=== PATIENT | female | born 1980 | race Caucasian/White ===

== ENCOUNTER → 2019-01-02 16:19 | Outpatient (CLI) | payer SELFPAY ==
--- NOTE | 2019-01-02 16:30 | RAD_ITS ---
STUDY: X-RAY - CERVICAL SPINE REASON FOR EXAM: Female, 38 years old. Cervical disorder at C5-C6 with right arm numbness. TECHNIQUE: 5 view(s) of the cervical spine were obtained. COMPARISON: None FINDINGS: Odontoid and lateral masses intact and aligned without significant degeneration. Mild multilevel facet arthropathy/hypertrophy. Uncovertebral joint hypertrophy at C5-C6 contributes to bony foraminal narrowing bilaterally. Mild uncal hypertrophy at C6-C7 contributes to minimal bony foraminal narrowing. There is mild intervertebral disc narrowing at C5-C6, minimal at C6-C7. Vertebral body height and alignment are normal. There is straightening of the expected cervical lordosis. Prevertebral soft tissues, airways, craniofacial osseous structures, apical lungs and apical thoracic cage within the [id number] exhibit No acute abnormality. RAD/Cerv Spine 4 or 5 Views IMPRESSION: Most prominent degenerative disc disease C5-C6, mild disc narrowing, moderately prominent uncovertebral joint hypertrophy contributing to foraminal narrowing. This may impinge upon the exiting C6 nerve roots. Follow-up MRI of the cervical spine is suggested. Electronically Signed: Sebas Curran MD at 14:53 EDT Tel , Service support ,
== END ==
PROVIDERS: Family Provider Family Medicine; PCP Family Medicine; Referring Provider Family Medicine; Visit Provider Family Medicine
DX: M50.122 Cervical disc disorder at C5-C6 level with radiculopathy (principal)
CPT/HCPCS: 72050

== ENCOUNTER → 2019-09-26 15:54 | Outpatient (CLI) | payer SELFPAY ==
--- NOTE | 2019-09-26 15:58 | BI_ITS ---
MAMMOGRAPHY - BILATERAL SCREENING REASON FOR EXAM: Female, 38 years old. Routine annual screening examination. PERTINENT HISTORY: Non-contributory. TECHNIQUE: Digital bilateral breast oral (3D mammographic acquisition) in the CC and MLO projections. 2-D mediolateral oblique (MLO) and craniocaudad (CC) views of both breasts were obtained. CAD: Full Field Digital Mammography with Computer Added Detection was performed. COMPARISON: None. Baseline examination. FINDINGS: Breast Composition: The breasts are heterogeneously dense, which may obscure small masses. There is a 1.5 cm x 0.8 cm well-defined nodule in the deep lateral aspect of the right breast. There is also evidence of enlarged right axillary lymph nodes. Correlation with ultrasound of the right axillary region as well as the nodular density in the lateral aspect of the breast for further evaluation. No other significant abnormalities are identified. BI/SCREEN MAMM (CAD) W/ORAL BILAT IMPRESSION: Nodular densities in the right axillary region as well as a nodule in the deep lateral portion of the right breast. Correlation with ultrasound is recommended ASSESSMENT CATEGORY: BIRADS Category 0: Incomplete. Need additional imaging evaluation. A letter regarding these results will be sent to the patient by the facility within 30 days. Approximately 10% of breast cancers are not detected by mammography. A normal mammogram should not delay biopsy of a clinically suspicious abnormality. [id number] Electronically Signed: Myles Lu, at 8:44 EST , Service support ,
== END ==
PROVIDERS: Family Provider Family Medicine; PCP Family Medicine; Referring Provider Family Medicine; Visit Provider Family Medicine
DX: Z12.31 Encounter for screening mammogram for malignant neoplasm of breast (principal)
CPT/HCPCS: 77063; 77067

== ENCOUNTER → 2019-10-02 15:10 | Outpatient (CLI) | payer SELFPAY ==
--- NOTE | 2019-10-02 15:13 | US_ITS ---
STUDY: ULTRASOUND BREAST - RIGHT REASON FOR EXAM: Female, 39 years old. Abnormal screening mammogram. TECHNIQUE: Axial and longitudinal images of the RIGHT breast were performed with a high resolution ultrasound transducer. # OF IMAGES: [id number] COMPARISON: Comparison is made with prior mammogram dated September 26, 2019. FINDINGS: RIGHT Breast: 3 cysts are seen in the upper outer quadrant of the right breast. The largest measures 1.3 cm x 0.9 cm x 0.4 cm. This corresponds to the mammographic findings. The right axillary region was examined as well. There is evidence of a 2.2 cm x 1.9 cm x 1 cm lymph node. Adjacent to this, there is a 1.5 cm x 1.1 cm x 0.7 cm lymph node. These lymph nodes have central echogenic yoly. US/Breast Limited Unilateral IMPRESSION: 3 cysts are seen in the upper-outer quadrant of the right breast as described. The largest measures 1.3 cm x 0.9 cm x 0.4 cm. This corresponds to the mammographic findings. 2. Right axillary lymph nodes. ASSESSMENT CATEGORY: BIRADS Category 2: Benign. A letter regarding these results will be sent to the patient by the facility within 30 days. Electronically Signed: Myles Lu, at 13:18 EST , Service support ,
== END ==
PROVIDERS: Family Provider Family Medicine; PCP Family Medicine; Referring Provider Family Medicine; Visit Provider Family Medicine
DX: R92.8 Other abnormal and inconclusive findings on diagnostic imaging of breast (principal)
CPT/HCPCS: 76642

== ENCOUNTER → 2019-10-30 11:15 | Outpatient (CLI) | payer SELFPAY ==
--- NOTE | 2019-10-30 11:26 | RAD_ITS ---
STUDY: X-RAY CHEST REASON FOR EXAM: Female, 39 years old. Shortness of breath TECHNIQUE: PA and lateral views of the chest COMPARISON: None. FINDINGS: The lungs are clear. There are no pleural effusions. There is no pneumothorax. The heart is normal in size. The visualized osseous structures are within normal limits. RAD/Chest PA and Lateral IMPRESSION: No acute thoracic pathology. Electronically Signed: Eran Hale, at 19:53 EST Tel , Service support ,
== END ==
PROVIDERS: Family Provider Family Medicine; PCP Family Medicine; Referring Provider Family Medicine; Visit Provider Family Medicine
DX: J20.9 Acute bronchitis, unspecified (principal)
CPT/HCPCS: 71046

== ENCOUNTER → 2020-05-12 | Outpatient (CLI) | payer SELFPAY ==
--- NOTE | 2020-05-12 10:01 | RAD_ITS ---
STUDY: X-RAY - LEFT RADIUS AND ULNA REASON FOR EXAM: Female, 39 years old. left wrist pain, fell several months ago TECHNIQUE: 2 view(s) of the forearm. COMPARISON: None. FINDINGS: There is no demonstrated soft tissue swelling. Normal visualized radius. Normal visualized ulna. There is no demonstrated acute fracture. RAD/Forearm 2 Views IMPRESSION: Normal x-ray examination of the radius and ulna. Electronically Signed: Franklyn Schroeder MD at 19:54 EDT , Service support ,
== END | disposition home or self-care (01) ==
PROVIDERS: PCP Family Medicine; Referring Provider Family Medicine; Visit Provider Family Medicine
DX: M25.532 Pain in left wrist (principal)
CPT/HCPCS: 73090

== ENCOUNTER → 2020-08-14 | Outpatient (CLI) | payer SELFPAY ==
--- NOTE | 2020-08-14 10:10 | RAD_ITS ---
STUDY: X-RAY CHEST REASON FOR EXAM: Female, 39 years old. Acute bronchitis TECHNIQUE: PA and lateral views of the chest. COMPARISON: 10/30/2019 FINDINGS: There is no new focal consolidation. Normal size heart. Normal mediastinum and yoly. Normal visualized pulmonary arteries. Normal visualized aortic arch and descending thoracic aorta. Normal visualized thoracic spine. Normal visualized ribs, clavicles, and shoulders. There is no demonstrated abnormality of the visualized soft tissue structures of the upper abdomen. RAD/Chest PA and Lateral IMPRESSION: No acute cardiopulmonary process. Electronically Signed: Angella Olivares MD at 20:28 EDT Tel , Service support ,
== END | disposition home or self-care (01) ==
PROVIDERS: PCP Family Medicine; Referring Provider Family Medicine; Visit Provider Family Medicine
DX: J20.9 Acute bronchitis, unspecified (principal); B34.9 Viral infection, unspecified
CPT/HCPCS: 71046; 87635; U0003

== ENCOUNTER → 2020-10-01 | Outpatient (CLI) | payer SELFPAY ==
[2020-10-05 04:49] LABS: HPV Reflexed? NOT INDICATED
== END | disposition home or self-care (01) ==
PROVIDERS: PCP Family Medicine; Referring Provider Nurse Practitioner Adult Health; Visit Provider Nurse Practitioner Adult Health
DX: Z12.4 Encounter for screening for malignant neoplasm of cervix (principal)
CPT/HCPCS: 88175; G0145

== ENCOUNTER → 2021-04-29 10:32 | Outpatient (CLI) | payer SELFPAY ==
[2021-04-29 12:45] LABS: T4 Free Direct 0.88 ng/dL (0.76-1.46); Thyroid Stim Hormone (TSH) 0.99 uIU/mL (0.358-3.74)
[2021-04-30 16:53] LABS: Thyroglobulin Antibody < 1.0 IU/mL (0.0-0.9); Thyroid Peroxidase AB 10 IU/mL (0-34)
== END ==
PROVIDERS: PCP Family Medicine; Referring Provider Family Medicine; Visit Provider Family Medicine
DX: E04.1 Nontoxic single thyroid nodule (principal)
CPT/HCPCS: 36415; 84439; 84443; 86376; 86800

== ENCOUNTER → 2021-05-06 10:53 | Outpatient (CLI) | payer SELFPAY ==
--- NOTE | 2021-05-06 11:00 | US_ITS ---
STUDY: THYROID ULTRASOUND REASON FOR EXAM: Female, 40 years old. Palpable lump. TECHNIQUE: Ultrasound evaluation of the thyroid was performed with real-time and static trejo-scale imaging. COMPARISON: None. FINDINGS: RIGHT LOBE: The right lobe of the thyroid gland measures 4.9 cm x 1.9 cm x 1.5 cm. There is a homogeneous echotexture. There are no demonstrated solid, cystic or complex lesions. LEFT LOBE: The left lobe of the thyroid gland measures 4.6 cm x 1.7 cm x 1.1 cm. There is a homogeneous echotexture. There is a 2 mm x 2 mm x 1 mm cyst in the upper pole. ISTHMUS: The isthmus measures 3 mm. The regional lymph nodes are normal. US/Thyroid IMPRESSION: 2 mm x 2 mm x 1 mm cyst in the upper pole of the left lobe of the thyroid. Electronically Signed: Myles Lu MD at 12:20 EDT , Service support ,
== END ==
PROVIDERS: PCP Family Medicine; Referring Provider Family Medicine; Visit Provider Family Medicine
DX: E04.1 Nontoxic single thyroid nodule (principal)
CPT/HCPCS: 76536

== ENCOUNTER → 2023-05-26 | Outpatient (CLI) | payer SELFPAY | END | disposition home or self-care (01) | LOC: LABSPEC 13:50 | PROVIDERS: PCP Family Medicine; Visit Provider Family Medicine | DX: R31.9 Hematuria, unspecified (principal) | CPT/HCPCS: 87086; 87088; 87186 ==

== ENCOUNTER → 2024-09-19 | Outpatient (CLI) | payer SELFPAY ==
[2024-09-19 10:39] LABS: Absolute Lymphocyte Count 3.05 X10^3/uL (0.83-4.51); Absolute Neutrophil Count 6.2 X10^3/uL (2.0-7.7); Basophil# 0.08 X10^3/uL; Basophil% 0.8 % (0-1); Eosinophil# 0.23 X10^3/uL; Eosinophils% 2.2 % (0-5); Hematocrit 44.4 % (37-47); Hemoglobin 14.2 g/dL (12.0-15.0); Lymphocyte # 3.05 X10^3/ul (0.83-4.51); Lymphocyte % 29.2 % (19-41); Mean Corpuscular Hgb 29.8 pg (27.0-32.0); Mean Corpuscular Volume 93.1 fL (81-99); Mean Platelet Vol. 9.8 fl (6.2-12.0); Monocyte# 0.87 X10^3/uL; Monocyte% 8.3 % (0-10); NRBC Flagged by Analyzer 0 % (0-5); Neutrophil # 6.19 X10^3/uL (2.7-7.7); Neutrophil % 59.2 % (47-70); Platelet Count 388 K/mm3 (150-450); RBC Distribution Width CV 13.2 % (11.6-14.6); Red Blood Count 4.77 M/mm3 (4.2-5.4); White Blood Count 10.5 K/mm3 (4.4-11.0)
[2024-09-19 10:58] LABS: AST(SGOT) 24 U/L (15-37); Alanine Aminotransfer ALT/SGPT 24 U/L (13-56); Albumin, Serum 3.7 g/dL (3.2-5.0); Alkaline Phosphatase 70 U/L (45-117); Anion Gap 3 (5-15); BUN 13 mg/dL (7-18); BUN/Creat Ratio 14.6 RATIO (10-20); Calcium,Total 8.8 mg/dL (8.5-10.1); Chloride 109 mmol/L (98-107); Creatinine, Serum 0.89 mg/dL (0.55-1.02); EST Glomerular Filtration Rate 73 mL/min (>60); Est Glom Filt Rate - Afr Amer 88 mL/min (>60); Globulin 3.6 g/dL (2.2-4.2); Glucose 84 mg/dL (74-106); Potassium 4.3 mmol/L (3.5-5.1); Protein, Total 7.3 g/dL (6.4-8.2); Sodium Level 140 mmol/L (136-145)
[2024-09-20 08:45] LABS: Bacteria 0 SEEN /hpf (None Seen); Mucous, Urine 0 SEEN /hpf (<or=2+)
[2024-09-20 08:47] LABS: Red Blood Cells-Urine 0 SEEN /hpf (0-5); White Blood Cells 0 SEEN /hpf (0-5)
[2024-09-20 09:15] LABS: Color, Urine Yellow (Yellow); Glucose, Dipstick Normal (Normal); Ketone-Dipstick Negative (Negative); Leukocyte Esterase-Dipstick Negative /ul (Negative); Nitrite-Dipstick Negative (Negative); Occult Blood-Urine Negative /ul (Negative); Protein-Dipstick Negative (Negative); Urine Bilirubin Dipstick Negative (Negative); Urine Clarity Sl. Cloudy (Clear); Urine Urobilinogen Normal (Normal)
[2024-09-20 09:23] LABS: Squamous Epithelial Cells - UA 0-5 SEEN /hpf (5-10)
== END | disposition home or self-care (01) ==
LOC: MFPLAB 08:54
PROVIDERS: PCP Family Medicine; Referring Provider Family Medicine; Visit Provider Family Medicine
DX: F17.200 Nicotine dependence, unspecified, uncomplicated (principal)
CPT/HCPCS: 36415; 80053; 81001; 82043; 85025

== ENCOUNTER → 2024-12-03 | Outpatient (CLI) | payer SELFPAY ==
--- NOTE | 2024-12-03 08:35 | MRI_ITS ---
PROCEDURE: MRI cervical spine without IV contrast REASON FOR EXAM: 12/03/2019 TECHNIQUE: Multisequence multiplanar MR images of the cervical spine were obtained without the administration of intravenous contrast. COMPARISON: 01/02/2019 FINDINGS: Vertebral body heights are maintained. Negative for fracture or marrow replacement. Mild degenerative endplate edema at C5-6. Alignment is within normal limits. Spinal cord is of normal caliber, contour and signal intensity. No paraspinal mass. C2-3: No focal disc abnormality, spinal stenosis or foraminal narrowing. C3-4: Minimal posterior disc osteophyte complex. No significant spinal stenosis or foraminal narrowing. Mild bilateral facet arthrosis. C4-5: No focal disc abnormality, spinal stenosis or foraminal narrowing. Mild right facet arthrosis. C5-6: Posterior disc osteophyte complex. Bilateral uncovertebral arthrosis. Mild spinal stenosis. Moderate/severe bilateral foraminal narrowing. C6-7: Posterior disc osteophyte complex. Bilateral uncovertebral arthrosis, greater on the right. Borderline mild spinal stenosis. Moderate/severe right and mild left foraminal narrowing. C7-T1: No focal disc abnormality, spinal stenosis or foraminal narrowing. MRI/Spine Cervical (Routine) IMPRESSION: Acquired mild spinal stenosis and moderate/severe foraminal narrowing at C5-C6 and C6-C7 as above. Reading Location: [facility]
== END | disposition home or self-care (01) ==
PROVIDERS: PCP Family Medicine; Referring Provider Family Medicine; Visit Provider Family Medicine
DX: M48.02 Spinal stenosis, cervical region (principal)
CPT/HCPCS: 72141

== ENCOUNTER → 2025-03-26 | Outpatient (CLI) | payer SELFPAY ==
--- NOTE | 2025-03-26 16:40 | CT_ITS ---
PROCEDURE: CHEST WITH CONTRAST 03/26/2025 REASON FOR EXAM: LACULATED PLEURAL EFFUSION TECHNIQUE: Prone and supine chest CT with intravenous contrast, high resolution CT (HRCT) protocol. Coronal and Sagittal reconstruction series were provided. CONTRAST: 100 mL of Isovue 370 One or more dose reduction techniques were used (e.g., Automated exposure control, adjustment of the mA and/or kV according to patient size, use of iterative reconstruction technique). RADIATION DOSE SUMMARY: DLP: 222 mGycm COMPARISON: None FINDINGS: LUNGS AND PLEURA: No focal consolidations. Moderate left-sided pleural effusion with subjacent compressive atelectasis. No pneumothorax. No nodules or masses. MEDIASTINUM: Prominent mediastinal lymph nodes without paddy adenopathy. The heart shows no acute findings. The aorta shows no acute findings. The pulmonary trunk and branches of the vessels in the mediastinum are within normal limits. SUPRACLAVICULAR AND AXILLARY: No abnormalities seen in these regions. No mass or significant lymphadenopathy. UPPER ABDOMEN: The visualized upper abdomen is unremarkable. BONES AND SOFT TISSUES: The bony structures show no significant acute findings. No focal bony mass lesions noted. The subcutaneous soft tissues are unremarkable. CT/Chest WITH Contrast IMPRESSION: Moderate left-sided pleural effusion with subjacent compressive atelectasis. No focal consolidations. Reading Location: [id number]
== END | disposition home or self-care (01) ==
PROVIDERS: PCP Family Medicine; Referring Provider Family Medicine; Visit Provider Family Medicine
DX: J90 Pleural effusion, not elsewhere classified (principal)
CPT/HCPCS: 71260; Q9967

== ENCOUNTER → 2025-03-26 | Outpatient (CLI) | payer SELFPAY ==
--- NOTE | 2025-03-26 11:46 | RAD_ITS ---
PROCEDURE: CHEST PA AND LATERAL 03/26/2025 REASON FOR EXAM: SOB X 2-3 WEEKS TECHNIQUE: Frontal and lateral views of the chest. COMPARISON: Two-view chest, 08/14/2020. FINDINGS: There is airspace consolidation in the lower lobe of the left lung and there is a partially loculated left pleural effusion. The right lung is clear. The heart size is normal. The mediastinum and pulmonary vascular pattern are normal. The upper abdominal bowel gas pattern is normal. There are no bony abnormalities of the chest. RAD/Chest PA and Lateral IMPRESSION: Partially loculated left pleural effusion and atelectasis or pneumonia in the l ower lobe of the left lung. Reading Location: [place] [id number]
== END | disposition home or self-care (01) ==
PROVIDERS: PCP Family Medicine; Referring Provider Family Medicine; Visit Provider Family Medicine
DX: R06.02 Shortness of breath (principal)
CPT/HCPCS: 71046

== ENCOUNTER → 2025-03-28 | Outpatient (CLI) | payer SELFPAY ==
--- NOTE | 2025-03-28 14:26 | US_ITS ---
PROCEDURE: Ultrasound of the pleural space 03/28/2025 REASON FOR EXAM: PLEURAL EFFUSION TECHNIQUE: Both right and left pleural spaces were examined with ultrasound. . Not enough fluid for safe thoracentesis. COMPARISON: None US/Chest IMPRESSION: Not enough fluid for safe thoracentesis. Reading Location: [id number]
== END | disposition home or self-care (01) ==
PROVIDERS: PCP Family Medicine; Referring Provider Family Medicine; Visit Provider Family Medicine
DX: J90 Pleural effusion, not elsewhere classified (principal)
CPT/HCPCS: 76604

== ENCOUNTER → 2025-04-04 | Outpatient (CLI) | payer SELFPAY ==
--- NOTE | 2025-04-04 12:41 | RAD_ITS ---
PROCEDURE: CHEST PA AND LATERAL 04/04/2025 REASON FOR EXAM: SHORTNESS OF BREATH TECHNIQUE: CHEST PA AND LATERAL COMPARISON: Prior study dated March 26, 2025. FINDINGS: Increasing left pleural effusion with left basilar atelectasis. RAD/Chest PA and Lateral IMPRESSION: Increasing left pleural effusion with left basilar atelectasis. Reading Location: [place] [id number]
[2025-04-04 13:28] LABS: Rheumatoid Factor 73.1 IU/mL (<15)
[2025-04-05 09:08] LABS: ANTINUCLEAR ANTIBODIES DIRECT Negative (Negative)
[2025-04-05 17:08] LABS: CCP IgG Antibodies > 250 units (0-19); Cytoplasmic Ab (C-ANCA) <1:20 titer (Neg:<1:20); Perinuclear Ab (P-ANCA) <1:20 titer (Neg:<1:20)
== END | disposition home or self-care (01) ==
LOC: RAD 12:25
PROVIDERS: PCP Family Medicine; Referring Provider Internal Medicine Critical Care Medicine; Visit Provider Internal Medicine Critical Care Medicine
DX: R06.09 Other forms of dyspnea (principal)
CPT/HCPCS: 36415; 71046; 86037; 86038; 86200; 86225; 86235; 86431

== ENCOUNTER → 2025-04-09 | Outpatient (CLI) | payer SELFPAY ==
--- NOTE | 2025-04-09 13:30 | US_ITS ---
PROCEDURE: THORACENTESIS W US 04/09/2025 REASON FOR EXAM: ENLARGING LEFT EFFUSION TECHNIQUE: Left THORACENTESIS W US COMPARISON: None. FINDINGS: Following informed consent, and using standard sterile technique, a left thoracic ultrasound-guided thoracentesis was performed via posterior approach. 2% lidocaine local anesthesia was followed by placement of a 5 Chinese catheter into the left pleural fluid collection. Extensive areas of loculation were clearly present, but approximately 45 mL of slightly cloudy yellow fluid was successfully removed, however. No complication was encountered, the patient left the department in good condition without significant complaint. US/Thoracentesis W US IMPRESSION: Successful left sided diagnostic thoracentesis. Laboratory results pending. Reading Location: [place] [id number]
[2025-04-09 13:45] VITALS: BP 103/74; PULSE 92; RESP 16; O2SAT 98
--- NOTE | 2025-04-09 13:45 | FLU_PTH ---
PATIENT: VALDEMAR KUMAR LOC: [facility]#:[id number] AGE/SX: 44/F ROOM: RE04/09/[address]: Dr. Dustin Venegas DO : 1980 BED: DIS: 04/09/2025 SPEC #: [id number] RECD: 04/09/25 14:20 STATUS: BARRY REQ #: [id number] SHIRLEY: 04/09/25 13:[address]: Dustin Venegas DEPT: CYTOLOGY RECD BY: Luís Man ENTERED: 04/10/25 09:46 SP TYPE: Fluid OTHR DR: Dr. Aldair Smith MD Tissues: A - THORACIC FLUID Procedures: Immunohistochemical Stains Special Stain Group II Surgery Specimen Level IV Cytospin Fluid IHC Stain ADDITIONAL HEADER OPERATION: Ultrasound guided thoracentesis PRE-OP DIAGNOSIS: Pleural effusion TISSUE SUBMITTED: A- Thoracentesis fluid for cytology DIAGNOSIS CYTOLOGY A. Pleural fluid, thoracentesis (cytospin, cellblock): - Atypical cells of undetermined significance. - Acute inflammation. - Further evaluation is pending IHC and the findings will be reported in an addendum. CYTOLOGY STUDY Slides are reviewed. CYTOLOGY GROSS A. Received is 30 ml of yellow-cloudy fluid labeled with the patient's name and and designated per the requisition as Thoracentesis fluid. Submitted for cytology and cell block preparation. 04/10/2025 CPT: 40545,64441,09429,12832s0 ADDENDUM ADDENDUM ADDENDUM ADDENDUM ADDENDUM ADDENDUM ADDENDUM ADDENDUM ADDENDUM ADDENDUM ADDENDUM ADDENDUM 05/09/2025 13:52 ADDENDUM 05/09/2025 13:52 ADDENDUM 05/09/2025 13:52 ADDENDUM 05/09/2025 13:52 ADDENDUM 05/09/2025 13:52 This addendum is to report the findings of the IHC stains: Rare small atypical cells are observed in the cell block. Rare cells are positive for GATA3. Additional IHC for Ecadherin, Calretinin, PAX8, CK7, CK20, TTF-1, and Napsin A are negative. The findings are not specific or diagnostic. All matched controls reacted appropriately. These tests were developed and their performance characteristics determined by [facility]. They may not have been cleared or approved by the [place]. Food and Drug Administration. The FDA has determined that such clearance or approval is not necessary.? The above immunohistochemical/dualISH?markers are reviewed by the Pathologist.
[2025-04-09] MEDS: Lidocaine 2% (20 ml mdv) 20 ML Vial INFILT (13:48)
[2025-04-09 13:50] VITALS: BP 78/52; PULSE 68; RESP 16; O2SAT 95
[2025-04-09 13:52] VITALS: BP 87/54; PULSE 68; RESP 16; O2SAT 97
[2025-04-09 14:00] VITALS: BP 101/66; PULSE 72; RESP 16; O2SAT 100
[2025-04-09 14:02] VITALS: BP 95/66; PULSE 80; RESP 16; O2SAT 98
[2025-04-09 14:06] VITALS: BP 100/72; PULSE 86; RESP 16; O2SAT 99
[2025-04-09 14:27] LABS: Cytology, Body Fluid / CSF SEE PATHOLOGY REPORT
[2025-04-09 14:50] LABS: Body Fluid Mononuclear WBC % 82.6 %; Body Fluid Polynuclear WBC % 17.4 %; Body Fluid Total Cells Counted 3.876 10^3/ul; Red Cell Count/Body Fluid 0.005 10^6/ul
[2025-04-09 14:52] LABS: Appearance/Body Fluid SL CLDY; Auto B Fluid Analyzer BKGD Ct COUNTS W/IN LIMITS (W/IN LIMITS); Color/Body Fluid YELLOW; Source- Body Fluid THORACENTESIS
[2025-04-09 15:17] LABS: Lymphocytes 77 %; Monocytes 7 %; Neutrophil (Segs) 16 %
[2025-04-09 15:20] LABS: Body Fluid QC Type(s) BF1Q
[2025-04-09 17:31] LABS: Glucose, Body Fluid 9 mg/dL (Not Establ.); LDH,Body Fluid 1026 Units/L (Not Establ.); Protein, Body Fluid 5.4 g/dL (Not Establ.)
[2025-04-11 11:05] LABS: Pathologist Comment/Body Fluid Reviewed
== END | disposition home or self-care (01) ==
LOC: US 13:27
PROVIDERS: PCP Family Medicine; Referring Provider Internal Medicine Critical Care Medicine; Visit Provider Internal Medicine Critical Care Medicine
DX: J90 Pleural effusion, not elsewhere classified (principal)
CPT/HCPCS: 32555; 82945; 83615; 84157; 87070; 87075; 87205; 88108; 88305; 88313; 88341; 88342; 89050

== ENCOUNTER → 2025-06-07 | Outpatient (CLI) | payer OTHER, SELFPAY ==
--- NOTE | 2025-06-07 13:13 | ECHOD_ITS ---
Reason For Study Reason For Study: DYSPNEA/SOB Procedure This was a 2D Doppler, Color Flow transthoracic echocardiogram. Exam performed in department. Left Ventricle Normal LV size. The estimated ejection fraction is 55 %. No evidence for diastolic dysfunction. No regional wall motion abnormalities noted. Right Ventricle Normal RV size. Normal systolic function. Atria The left and right atria are normal. No doppler evidence for ASD. Mitral Valve There is no mitral valve stenosis. Trivial mitral valve insufficiency. Tricuspid Valve There is no tricuspid stenosis. Trivial tricuspid valve insufficiency. Unable to estimate RV systolic pressure due to insufficient tricuspid regurgitant envelope. Aortic Valve Trisinus/trileaflet aortic valve. There is no aortic stenosis. No aortic valve insufficiency. Pulmonic Valve There is no pulmonic valvular stenosis. No pulmonic valve insufficiency. Great Vessels Normal sized aortic root. Pericardium/Pleural No pericardial effusion. MMode/2D Measurements & Calculations LVIDd: 4.5 cm IVSd: 0.75 cm Ao root diam: 3.1 cm LVIDs: 3.2 cm LVPWd: 0.78 cm RVDd: 2.9 cm FS: 28.1 % LAV(MOD-bp): 33.6 ml LVAd ap4: 23.0 cm2 SV(MOD-sp4): 33.7 ml LAV(MOD-bp) Indexed: 19.3 ml/m2 LVLd ap4: 7.1 cm SI(MOD-sp4): 19.4 ml/m2 LAV(MOD-sp2): 35.2 ml EDV(MOD-sp4): 61.0 ml LAV(MOD-sp4): 31.0 ml EDV(sp4-el): 63.1 ml LVAs ap4: 14.1 cm2 LVLs ap4: 6.0 cm ESV(MOD-sp4): 27.3 ml ESV(sp4-el): 27.8 ml EF(MOD-sp4): 55.3 % EF(sp4-el): 55.9 % SV(sp4-el): 35.3 ml LA A4 area: 13.0 cm2 LA dimension(2D): 2.8 cm RA A4 area: 12.1 cm2 TAPSE: 2.2 cm Time Measurements MV dec time: 0.15 sec Doppler Measurements & Calculations MV E max adis: 58.7 cm/sec Lat Peak E' Adis: 12.7 cm/sec Med Peak E' Adis: 10.8 cm/sec MV A max adis: 70.1 cm/sec E/E' lat: 4.6 E/E' med: 5.5 MV E/A: 0.84 MV V2 max: 83.6 cm/sec MV P1/2t max adis: 72.3 cm/sec Ao V2 max: 100.5 cm/sec MV max P.8 mmHg MV P1/2t: 60.3 msec Ao max P.0 mmHg MV V2 mean: 43.3 cm/sec Ao V2 mean: 67.1 cm/sec MV mean P.87 mmHg MV dec slope: 350.8 cm/sec2 Ao mean P.0 mmHg MV V2 VTI: 22.4 cm MVA(P1/2t): 3.6 cm2 Ao V2 VTI: 18.6 cm AV (velocity ratio): 0.92 LV V1 max: 82.3 cm/sec PA V2 max: 75.3 cm/sec TR max adis: 182.9 cm/sec LV V1 max P.7 mmHg TR max P.4 mmHg LV V1 mean P.5 mmHg LV V1 mean: 58.4 cm/sec LV V1 VTI: 17.0 cm ECHO/Echo Complete Interpretation Summary The estimated ejection fraction is 55 %. No evidence for diastolic dysfunction. Trivial mitral valve insufficiency. Ordering Physician: Dustin Venegas Referring Physician: Aldair Smith Performed By: Brittany Gabriel, JIMMIECS, RVT
== END | disposition home or self-care (01) ==
PROVIDERS: PCP Family Medicine; Referring Provider Internal Medicine Critical Care Medicine; Visit Provider Internal Medicine Critical Care Medicine
DX: R06.09 Other forms of dyspnea (principal)
CPT/HCPCS: 93306

== ENCOUNTER → 2025-06-19 | Outpatient (CLI) | payer OTHER, SELFPAY ==
[2025-06-19 11:07] LABS: Hematocrit 42.9 % (37-47); Hemoglobin 14.3 g/dL (12.0-15.0); Immature Granulocytes Count 0.040 X10^3/uL (0.0-0.0); Mean Corp Hgb Conc 33.3 g/dL (32-36); Mean Corpuscular Volume 90.5 fL (81-99); Mean Platelet Vol. 9.2 fl (6.2-12.0); NRBC Flagged by Analyzer 0 % (0-5); Platelet Count 366 K/mm3 (150-450); RBC Distribution Width CV 16.0 % (11.6-14.6); RBC Distribution Width SD 53.4 fl (35.1-43.9); Red Blood Count 4.74 M/mm3 (4.2-5.4); White Blood Count 11.7 K/mm3 (4.4-11.0)
[2025-06-19 11:38] LABS: AST(SGOT) 30 U/L (<=31); Alanine Aminotransfer ALT/SGPT 25 U/L (<=34); Albumin, Serum 4.0 g/dL (3.5-5.0); Alkaline Phosphatase 69 U/L (35-104); Bilirubin, Direct 0.13 mg/dL (0.00-0.30); Globulin 2.6 g/dL (2.2-4.2)
== END | disposition home or self-care (01) ==
PROVIDERS: PCP Family Medicine; Referring Provider Internal Medicine Rheumatology; Visit Provider Internal Medicine Rheumatology
DX: M05.79 Rheumatoid arthritis with rheumatoid factor of multiple sites without organ or systems involvement (principal)
CPT/HCPCS: 36415; 80076; 82565; 85025

== ENCOUNTER → 2025-06-20 | Outpatient (CLI) | payer OTHER, SELFPAY ==
--- NOTE | 2025-06-20 09:57 | RAD_ITS ---
PROCEDURE: CHEST PA AND LATERAL 06/20/2025 REASON FOR EXAM: CP TECHNIQUE: Procedure Code: RADCXR Modality: DX Procedure: CHEST PA AND LATERAL COMPARISON: Two-view chest, 04/04/2025. FINDINGS: There is linear scarring in the lingula. The lungs are otherwise clear. There is blunting of the left costophrenic angle. The heart borders mediastinum and pulmonary vascular pattern are normal. The upper abdominal bowel gas pattern is normal. There are no bony abnormalities of the chest. RAD/Chest PA and Lateral IMPRESSION: No evidence of acute cardiopulmonary pathology. Other findings as noted. Reading Location: [id number]
== END | disposition home or self-care (01) ==
LOC: RAD 09:50
PROVIDERS: PCP Family Medicine; Visit Provider Nurse Practitioner Family
DX: R07.9 Chest pain, unspecified (principal)
CPT/HCPCS: 71046

== ENCOUNTER → 2025-07-03 | Outpatient (CLI) | payer OTHER, SELFPAY | END | disposition home or self-care (01) | LOC: PSN 09:24 | PROVIDERS: PCP Family Medicine; Referring Provider Internal Medicine Critical Care Medicine; Visit Provider Internal Medicine Critical Care Medicine | DX: R06.09 Other forms of dyspnea (principal) | CPT/HCPCS: 94060; 94726; 94729 ==

== ENCOUNTER → 2025-07-19 | Outpatient (CLI) | payer OTHER, SELFPAY ==
[2025-07-19 10:37] LABS: Hematocrit 44.2 % (37-47); Hemoglobin 15.1 g/dL (12.0-15.0); Immature Granulocytes Count 0.040 X10^3/uL (0.0-0.0); Mean Corp Hgb Conc 34.2 g/dL (32-36); Mean Corpuscular Volume 88.2 fL (81-99); Mean Platelet Vol. 10.1 fl (6.2-12.0); NRBC Flagged by Analyzer 0 % (0-5); Platelet Count 425 K/mm3 (150-450); RBC Distribution Width CV 14.8 % (11.6-14.6); RBC Distribution Width SD 47.6 fl (35.1-43.9); Red Blood Count 5.01 M/mm3 (4.2-5.4); White Blood Count 12.1 K/mm3 (4.4-11.0)
[2025-07-19 11:15] LABS: AST(SGOT) 38 U/L (<=31); Alanine Aminotransfer ALT/SGPT 43 U/L (<=34); Albumin, Serum 4.4 g/dL (3.5-5.0); Alkaline Phosphatase 82 U/L (35-104); Anion Gap 13 (5-15); BUN 11 mg/dL (4-19); BUN/Creat Ratio 14.5 RATIO (10-20); Calcium,Total 9.2 mg/dL (7.6-11.0); Carbon Dioxide 23.1 mmol/L (21.0-32.0); Chloride 103 mmol/L (98-108); Globulin 2.9 g/dL (2.2-4.2); Glucose 87 mg/dL (70-99); Potassium 4.1 mmol/L (3.3-5.1); Vitamin B12 835 pg/mL (180-914); Vitamin D,25 Hydroxy 30.8 ng/mL (30-100)
[2025-07-23 07:16] LABS: Hepatitis B Surface Antigen Nonreactive (Nonreactive); Hepatitis C Antibody Nonreactive (Nonreactive)
== END | disposition home or self-care (01) ==
LOC: MFPLAB 08:02
PROVIDERS: PCP Family Medicine; Visit Provider Family Medicine
DX: R79.89 Other specified abnormal findings of blood chemistry (principal); R53.83 Other fatigue
CPT/HCPCS: 36415; 80053; 82306; 82607; 84439; 84443; 85025; 86706; 86803; 87340

== ENCOUNTER → 2025-08-08 | Outpatient (CLI) | payer OTHER, SELFPAY ==
[2025-08-08 17:28] LABS: AST(SGOT) 29 U/L (<=31); Alanine Aminotransfer ALT/SGPT 29 U/L (<=34); Albumin, Serum 4.3 g/dL (3.5-5.0); Alkaline Phosphatase 75 U/L (35-104); Bilirubin, Direct 0.20 mg/dL (0.00-0.30); Globulin 2.8 g/dL (2.2-4.2)
== END | disposition home or self-care (01) ==
LOC: LAB 16:05
PROVIDERS: PCP Family Medicine; Referring Provider Internal Medicine Rheumatology; Visit Provider Internal Medicine Rheumatology
DX: R74.8 Abnormal levels of other serum enzymes (principal)
CPT/HCPCS: 36415; 80076